=== PATIENT | male | born 1960 | race Native Hawaiian/Other Pacific Islander ===

== ENCOUNTER 2017-02-19 09:27 | Outpatient (CLI) | payer OTHER ==
[2017-02-19 09:44] LABS: PLATELET COUNT 279 K/uL (142-355)
[2017-02-19 09:55] LABS: POTASSIUM 3.6 mmol/L (3.6-5.2); SODIUM 136 mmol/L (136-145)
== END 2017-02-19 21:16 | disposition home or self-care (01) ==
LOC: LABW 09:27
PROVIDERS: Anesthesiology
DX: Z01.818 Encounter for other preprocedural examination (principal); I10 Essential (primary) hypertension
CPT/HCPCS: 36415; 80048; 85027; 93005

== ENCOUNTER 2018-02-04 14:47 | Outpatient (CLI) | payer OTHER | END 2018-02-04 22:41 | disposition home or self-care (01) | LOC: CT 14:47 | DX: S42.415A Nondisplaced simple supracondylar fracture without intercondylar fracture of left humerus, initial encounter for closed fracture (principal); X58.XXXA Exposure to other specified factors, initial encounter; Y93.89 Activity, other specified; Y92.89 Other specified places as the place of occurrence of the external cause ==

== ENCOUNTER 2018-06-05 14:44 | Outpatient (CLI) | payer OTHER ==
[2018-06-05 15:10] LABS: POTASSIUM 3.4 mmol/L (3.6-5.2)
== END 2018-06-05 20:35 | disposition home or self-care (01) ==
LOC: LABW 14:44
PROVIDERS: Orthopaedic Surgery
DX: Z01.818 Encounter for other preprocedural examination (principal); I10 Essential (primary) hypertension
CPT/HCPCS: 36415; 80048; 93005

== ENCOUNTER 2018-08-04 10:44 | Outpatient (CLI) | payer OTHER ==
[2018-08-04 11:07] LABS: PLATELET COUNT 410 K/uL (142-355)
== END 2018-08-04 19:37 | disposition home or self-care (01) ==
LOC: LAB 10:44
PROVIDERS: Internal Medicine Infectious Disease
DX: B95.61 Methicillin susceptible Staphylococcus aureus infection as the cause of diseases classified elsewhere (principal)
CPT/HCPCS: 80053; 85027; 86140

== ENCOUNTER 2018-08-11 11:26 | Outpatient (CLI) | payer OTHER ==
[2018-08-11 12:23] LABS: PLATELET COUNT 386 K/uL (142-355)
[2018-08-11 12:44] LABS: POTASSIUM 4.2 mmol/L (3.6-5.2)
== END 2018-08-11 23:24 | disposition home or self-care (01) ==
LOC: LAB 11:26
PROVIDERS: Internal Medicine Infectious Disease
DX: B95.61 Methicillin susceptible Staphylococcus aureus infection as the cause of diseases classified elsewhere (principal)
CPT/HCPCS: 80053; 85027; 86140

== ENCOUNTER 2018-08-18 11:25 | Outpatient (CLI) | payer OTHER ==
[2018-08-18 11:48] LABS: POTASSIUM 3.4 mmol/L (3.6-5.2)
[2018-08-18 11:51] LABS: PLATELET COUNT 268 K/uL (142-355)
== END 2018-08-18 23:42 | disposition home or self-care (01) ==
LOC: LAB 11:25
PROVIDERS: Internal Medicine Infectious Disease
DX: Z79.2 Long term (current) use of antibiotics (principal); B95.61 Methicillin susceptible Staphylococcus aureus infection as the cause of diseases classified elsewhere
CPT/HCPCS: 80053; 85027; 86140

== ENCOUNTER 2018-09-01 10:05 | Outpatient (CLI) | payer OTHER ==
[2018-09-01 10:20] LABS: PLATELET COUNT 209 K/uL (142-355)
[2018-09-01 10:57] LABS: POTASSIUM 3.4 mmol/L (3.6-5.2)
== END 2018-09-01 22:47 | disposition home or self-care (01) ==
LOC: LAB 10:05
PROVIDERS: Internal Medicine Infectious Disease
DX: B99.9 Unspecified infectious disease (principal); B95.61 Methicillin susceptible Staphylococcus aureus infection as the cause of diseases classified elsewhere
CPT/HCPCS: 80053; 85027; 86140

== ENCOUNTER 2018-09-08 11:12 | Outpatient (CLI) | payer OTHER ==
[2018-09-08 14:12] LABS: POTASSIUM 4.2 mmol/L (3.6-5.2)
[2018-09-08 14:27] LABS: PLATELET COUNT 223 K/uL (142-355)
== END 2018-09-08 21:40 | disposition home or self-care (01) ==
LOC: LAB 11:12
PROVIDERS: Internal Medicine Infectious Disease
DX: B95.61 Methicillin susceptible Staphylococcus aureus infection as the cause of diseases classified elsewhere (principal)
CPT/HCPCS: 80053; 85027; 86140

== ENCOUNTER 2018-09-15 11:00 | Outpatient (CLI) | payer OTHER ==
[2018-09-15 11:23] LABS: PLATELET COUNT 284 K/uL (142-355)
[2018-09-15 11:35] LABS: POTASSIUM 3.8 mmol/L (3.6-5.2)
== END 2018-09-16 05:50 | disposition home or self-care (01) ==
LOC: LAB 11:00
PROVIDERS: Internal Medicine Infectious Disease
DX: Z79.2 Long term (current) use of antibiotics (principal); B95.61 Methicillin susceptible Staphylococcus aureus infection as the cause of diseases classified elsewhere
CPT/HCPCS: 80053; 85027; 86140

== ENCOUNTER 2018-09-22 12:48 | Outpatient (CLI) | payer OTHER ==
[2018-09-22 13:02] LABS: PLATELET COUNT 249 K/uL (142-355)
[2018-09-22 13:17] LABS: POTASSIUM 3.6 mmol/L (3.6-5.2)
== END 2018-09-22 22:54 | disposition home or self-care (01) ==
LOC: LAB 12:48
PROVIDERS: Internal Medicine Infectious Disease
DX: B95.61 Methicillin susceptible Staphylococcus aureus infection as the cause of diseases classified elsewhere (principal)
CPT/HCPCS: 80053; 85027; 86140

== ENCOUNTER 2018-09-29 10:59 | Outpatient (CLI) | payer OTHER ==
[2018-09-29 12:51] LABS: PLATELET COUNT 239 K/uL (142-355)
[2018-09-29 16:46] LABS: POTASSIUM 3.9 mmol/L (3.6-5.2)
== END 2018-09-29 20:38 | disposition home or self-care (01) ==
LOC: LAB 10:59
PROVIDERS: Internal Medicine Infectious Disease
DX: B95.61 Methicillin susceptible Staphylococcus aureus infection as the cause of diseases classified elsewhere (principal)
CPT/HCPCS: 80053; 85027; 86140

== ENCOUNTER 2018-10-06 13:43 | Outpatient (CLI) | payer OTHER ==
[2018-10-06 13:56] LABS: PLATELET COUNT 245 K/uL (142-355)
[2018-10-06 14:15] LABS: POTASSIUM 3.9 mmol/L (3.6-5.2)
== END 2018-10-06 16:00 | disposition home or self-care (01) ==
LOC: LAB 13:43
PROVIDERS: Internal Medicine Infectious Disease
DX: B95.61 Methicillin susceptible Staphylococcus aureus infection as the cause of diseases classified elsewhere (principal)
CPT/HCPCS: 80053; 85027; 86140

== ENCOUNTER 2018-10-13 13:20 | Outpatient (CLI) | payer OTHER ==
[2018-10-13 13:47] LABS: PLATELET COUNT 240 K/uL (142-355)
[2018-10-13 13:56] LABS: POTASSIUM 3.8 mmol/L (3.6-5.2)
== END 2018-10-13 23:59 | disposition home or self-care (01) ==
LOC: LAB 13:20
PROVIDERS: Internal Medicine Infectious Disease
DX: Z79.2 Long term (current) use of antibiotics (principal); B95.61 Methicillin susceptible Staphylococcus aureus infection as the cause of diseases classified elsewhere
CPT/HCPCS: 80053; 85027; 86140

== ENCOUNTER 2018-10-21 13:56 | Outpatient (CLI) | payer OTHER ==
[2018-10-21 14:09] LABS: PLATELET COUNT 229 K/uL (142-355)
[2018-10-21 14:28] LABS: POTASSIUM 3.3 mmol/L (3.6-5.2)
== END 2018-10-21 23:20 | disposition home or self-care (01) ==
LOC: LAB 13:56
PROVIDERS: Internal Medicine Infectious Disease
DX: M86.9 Osteomyelitis, unspecified (principal); B95.61 Methicillin susceptible Staphylococcus aureus infection as the cause of diseases classified elsewhere; Z79.2 Long term (current) use of antibiotics
CPT/HCPCS: 80053; 85027; 86140

== ENCOUNTER 2018-10-27 13:03 | Outpatient (CLI) | payer OTHER ==
[2018-10-27 13:52] LABS: PLATELET COUNT 235 K/uL (142-355)
[2018-10-27 14:09] LABS: POTASSIUM 3.7 mmol/L (3.6-5.2)
== END 2018-10-27 22:40 | disposition home or self-care (01) ==
LOC: LAB 13:03
PROVIDERS: Internal Medicine Infectious Disease
DX: Z79.2 Long term (current) use of antibiotics (principal); B95.61 Methicillin susceptible Staphylococcus aureus infection as the cause of diseases classified elsewhere
CPT/HCPCS: 80053; 85027; 86140

== ENCOUNTER 2018-11-03 13:00 | Outpatient (CLI) | payer OTHER ==
[2018-11-03 13:21] LABS: PLATELET COUNT 218 K/uL (142-355)
[2018-11-03 13:39] LABS: POTASSIUM 3.1 mmol/L (3.6-5.2)
== END 2018-11-03 20:15 | disposition home or self-care (01) ==
LOC: LAB 13:00
PROVIDERS: Internal Medicine Infectious Disease
DX: Z79.2 Long term (current) use of antibiotics (principal); B95.61 Methicillin susceptible Staphylococcus aureus infection as the cause of diseases classified elsewhere
CPT/HCPCS: 80053; 85027; 86140

== ENCOUNTER 2019-02-20 10:41 | Outpatient (CLI) | payer OTHER ==
[2019-02-20 10:52] LABS: PLATELET COUNT 316 K/uL (142-355)
[2019-02-20 11:13] LABS: POTASSIUM 3.3 mmol/L (3.6-5.2)
== END 2019-02-20 19:29 | disposition home or self-care (01) ==
LOC: LABW 10:41
PROVIDERS: Internal Medicine Infectious Disease
DX: A49.01 Methicillin susceptible Staphylococcus aureus infection, unspecified site (principal); T84.59XD Infection and inflammatory reaction due to other internal joint prosthesis, subsequent encounter
CPT/HCPCS: 36415; 80053; 85027; 85651; 86140

== ENCOUNTER 2019-03-09 15:02 | Outpatient (CLI) | payer OTHER ==
[2019-03-09 15:30] LABS: PLATELET COUNT 378 K/uL (142-355)
[2019-03-09 15:55] LABS: POTASSIUM 3.3 mmol/L (3.6-5.2)
== END 2019-03-09 20:14 | disposition home or self-care (01) ==
LOC: LABW 15:02
PROVIDERS: Internal Medicine Infectious Disease
DX: T84.7XXD Infection and inflammatory reaction due to other internal orthopedic prosthetic devices, implants and grafts, subsequent encounter (principal)
CPT/HCPCS: 36415; 80048; 85027; 86140

== ENCOUNTER 2019-03-20 14:47 | Outpatient (CLI) | payer OTHER ==
[2019-03-20 15:03] LABS: PLATELET COUNT 334 K/uL (142-355)
[2019-03-20 15:08] LABS: POTASSIUM 2.8 mmol/L (3.6-5.2)
== END 2019-03-20 19:41 | disposition home or self-care (01) ==
LOC: LABW 14:47
PROVIDERS: Internal Medicine Infectious Disease
DX: T84.7XXD Infection and inflammatory reaction due to other internal orthopedic prosthetic devices, implants and grafts, subsequent encounter (principal)
CPT/HCPCS: 36415; 80048; 85027; 86140

== ENCOUNTER 2019-04-03 15:00 | Outpatient (CLI) | payer OTHER ==
[2019-04-03 15:17] LABS: PLATELET COUNT 355 K/uL (142-355)
[2019-04-03 15:32] LABS: POTASSIUM 2.9 mmol/L (3.6-5.2)
== END 2019-04-03 19:38 | disposition home or self-care (01) ==
LOC: LABW 15:00
PROVIDERS: Internal Medicine Infectious Disease
DX: T84.7XXD Infection and inflammatory reaction due to other internal orthopedic prosthetic devices, implants and grafts, subsequent encounter (principal)
CPT/HCPCS: 36415; 80048; 85027; 86140

== ENCOUNTER 2019-04-20 15:14 | Outpatient (CLI) | payer OTHER ==
[2019-04-20 15:41] LABS: POTASSIUM 2.5 mmol/L (3.6-5.2)
[2019-04-20 15:49] LABS: PLATELET COUNT 350 K/uL (142-355)
== END 2019-04-20 19:17 | disposition home or self-care (01) ==
LOC: LABW 15:14
PROVIDERS: Internal Medicine Infectious Disease
DX: T84.7XXD Infection and inflammatory reaction due to other internal orthopedic prosthetic devices, implants and grafts, subsequent encounter (principal)
CPT/HCPCS: 36415; 80048; 85027; 86140

== ENCOUNTER 2019-06-08 17:43 | Inpatient (IN) | payer OTHER ==
[~2019-06-08] VITALS: Ht 165.1 cm; Wt 61.4 kg
[2019-06-08 17:45] VITALS: BP 107/75; TEMP 97.3
[2019-06-08 19:00] VITALS: BP 109/68
[2019-06-08 19:29] LABS: PLATELET COUNT 375 K/uL (142-355)
[2019-06-08 19:50] LABS: POTASSIUM 2.7 mmol/L (3.6-5.2)
[2019-06-08 20:06] VITALS: BP 117/78
[2019-06-08 21:28] VITALS: BP 108/69; TEMP 98.1
[2019-06-09 02:53] VITALS: BP 127/88; TEMP 97.7; Ht 165.1 cm; Wt 61.4 kg
[2019-06-09 04:00] VITALS: BP 140/88; TEMP 98.1
[2019-06-09 08:58] VITALS: BP 131/77; TEMP 97.9
[2019-06-09 10:06] LABS: PLATELET COUNT 311 K/uL (142-355)
[2019-06-09 11:32] LABS: PARTIAL THROMBOPLASTIN TIME 26.8 SECONDS (24.5-33.6)
[2019-06-09 20:00] VITALS: BP 106/62; TEMP 98.2
[2019-06-10] VITALS: BP 99/63; TEMP 97.7
[2019-06-10 04:00] VITALS: BP 103/60; TEMP 97.7
[2019-06-10 07:11] LABS: POTASSIUM 2.9 mmol/L (3.6-5.2)
[2019-06-10 10:03] LABS: PLATELET COUNT 266 K/uL (142-355)
[2019-06-10 20:00] VITALS: BP 85/52; TEMP 97.4
[2019-06-11] VITALS: BP 93/54; TEMP 98
[2019-06-11 04:00] VITALS: BP 119/68; TEMP 97.3
[2019-06-11 05:55] LABS: PLATELET COUNT 226 K/uL (142-355)
[2019-06-11 06:14] LABS: POTASSIUM 3.6 mmol/L (3.6-5.2)
[2019-06-11 19:28] VITALS: BP 107/65; TEMP 98.1
[2019-06-12 05:40] VITALS: BP 131/81; TEMP 98.9
[2019-06-12 09:37] LABS: POTASSIUM 4.5 mmol/L (3.6-5.2)
[2019-06-12 09:53] LABS: PLATELET COUNT 217 K/uL (142-355)
[2019-06-12] MEDS ORDERED: CEFDINIR300 MG PO (11:59)
== END 2019-06-12 15:40 | disposition home or self-care (01) | DRG 433 ==
LOC: ED 17:43 → MED/SURG 21:50
PROVIDERS: Emergency Medicine; ADMIT Internal Medicine Endocrinology, Diabetes & Metabolism
PROC: 0W9G3ZZ Drainage of Peritoneal Cavity, Percutaneous Approach (ICD-10-PCS; principal; 2019-06-10)
DX: K70.31 Alcoholic cirrhosis of liver with ascites (principal); E87.1 Hypo-osmolality and hyponatremia; N17.9 Acute kidney failure, unspecified; E72.20 Disorder of urea cycle metabolism, unspecified; E87.6 Hypokalemia; R94.5 Abnormal results of liver function studies; K21.9 Gastro-esophageal reflux disease without esophagitis; F32.89 Other specified depressive episodes; F10.20 Alcohol dependence, uncomplicated
CPT/HCPCS: 36415; 80053; 82140; 82150; 82945; 83615; 83690; 83735; 83880; 83986; 84155; 85027; 85610; 85730; 87101; 88160; 89050; 93005; 96374; 96375; 99284; J0696; J1885; J2175; P9047; Q9963